=== PATIENT | female | born 1970 | race African-American/Black ===

== ENCOUNTER 2017-05-24 20:28 | Emergency (ER) | payer OTHER ==
--- NOTE | 2017-05-24 21:06 | RAD ---
FOUR VIEWS OF THE RIGHT KNEE: 05/24/17 INDICATION: Fall through porch with right knee pain. COMPARISON: None. FINDINGS: No acute fracture or subluxation is evident. IMPRESSION: No acute fracture or subluxation. POS: BERNABE
--- NOTE | 2017-05-24 21:06 | RAD ---
THREE VIEWS OF THE RIGHT FORELE05/24/17 INDICATION: Fell through porch with right leg pain. FINDINGS: There is prominent soft tissue swelling of the right foreleg. No acute fracture or subluxation is ev ident. IMPRESSION: No acute osseous abnormality. POS: FERMIN
[2017-05-24] MEDS ORDERED: HYDROcodone/Acetaminophen 10/325 mg Tablet ONE (23:15)
== END 2017-05-24 23:20 | disposition home or self-care (01) ==
LOC: ERS 20:28
DX: S80.11XA Contusion of right lower leg, initial encounter (principal); I10 Essential (primary) hypertension; W01.0XXA Fall on same level from slipping, tripping and stumbling without subsequent striking against object, initial encounter

== ENCOUNTER 2018-08-27 17:53 | Emergency (ER) | payer OTHER, SELFPAY | END 2018-08-27 19:30 | disposition home or self-care (01) | LOC: ERS 17:53 | DX: S39.012A Strain of muscle, fascia and tendon of lower back, initial encounter (principal); M54.16 Radiculopathy, lumbar region; E11.9 Type 2 diabetes mellitus without complications; I10 Essential (primary) hypertension; X50.9XXA Other and unspecified overexertion or strenuous movements or postures, initial encounter | CPT/HCPCS: 99283 ==

== ENCOUNTER 2018-10-15 13:26 | Emergency (ER) | payer OTHER, SELFPAY ==
[2018-10-15] MEDS ORDERED: Ondansetron PF 4 MG/2 ML Vial ONE (14:58)
--- NOTE | 2018-10-15 15:21 | CT ---
CT BRAIN WITHOUT CONTRAST: Date: 10/15/18 HISTORY: Intermittent headache. FINDINGS: Comparison made with exam of 04/02/15. No evidence of acute infarct, hemorrhage, midline shift, or abnormal extra-axial fluid collections ar e seen. The ventricular size is normal and the basilar cisterns are patent. The bony calvarium is int act. The visualized paranasal sinuses and mastoid air cells are well aerated. IMPRESSION: Unremarkable unenhanced CT scan of the brain. POS: OFF
[2018-10-15] MEDS ORDERED: Ketorolac Tromethamine 30 MG/ML VIAL ONE (16:16)
[2018-10-15] MEDS ORDERED: Metoclopramide HCl 10 MG/2 ML VIAL ONE (16:16)
== END 2018-10-15 17:40 | disposition home or self-care (01) ==
LOC: ERS 13:26
DX: R51 Headache (principal); E11.9 Type 2 diabetes mellitus without complications; I10 Essential (primary) hypertension; Z79.899 Other long term (current) drug therapy; Z79.84 Long term (current) use of oral hypoglycemic drugs
CPT/HCPCS: 70450; 96361; 96374; 96375; J1885; J2405; J2765

== ENCOUNTER 2018-11-23 23:30 | Emergency (ER) | payer OTHER ==
[2018-11-24] MEDS ORDERED: Dexamethasone 4 mg/ml Vial ONE (01:27)
[2018-11-24] MEDS ORDERED: Ibuprofen 200 MG TAB ONE (01:27)
== END 2018-11-24 01:35 | disposition home or self-care (01) ==
LOC: ERS 23:30
DX: J06.9 Acute upper respiratory infection, unspecified (principal); E11.9 Type 2 diabetes mellitus without complications; I10 Essential (primary) hypertension; Z79.899 Other long term (current) drug therapy
CPT/HCPCS: 87804; 99283; J1100

== ENCOUNTER 2018-12-17 14:41 | Outpatient (CLI) | payer OTHER ==
--- NOTE | 2018-12-17 16:30 | MMO ---
Bilateral MAMMO Bilat Screen [facility]. CLINICAL HISTORY: Patient is 47 years old and is seen for screening. The patient has no family history of breast cancer. The patient has no personal history of cancer. VIEWS: The views performed were: bilateral craniocaudal with tomosynthesis and bilateral mediolateral oblique with tomosynthesis. FILMS COMPARED: The present examination has been compared to prior imaging studies performed at [facility] on 01/20/2009, 04/25/2012, 12/31/2013 and 12/17/2015. MAMMOGRAM FINDINGS: The breasts are heterogeneously dense, which could obscure a lesion on mammography. There are no suspicious masses, suspicious calcifications, or new areas of architectural distortion. IMPRESSION: THERE IS NO MAMMOGRAPHIC EVIDENCE OF MALIGNANCY. A ROUTINE FOLLOW-UP MAMMOGRAM IN 1 YEAR IS RECOMMENDED. THE RESULTS OF THIS EXAM WERE SENT TO THE PATIENT. ACR BI-RADS Category 1 - Negative MAMMOGRAPHY NOTE: 1. A negative mammogram report should not delay a biopsy if a dominant of clinically suspicious mass is present. 2. Approximately 10% to 15% of breast cancers are not detected by mammography. 3. Adenosis and dense breasts may obscure an underlying neoplasm.
== END 2018-12-17 14:42 | disposition home or self-care (01) ==
LOC: BICMAMMO 14:41
PROVIDERS: ATTEND Family Medicine
DX: Z12.31 Encounter for screening mammogram for malignant neoplasm of breast (principal)
CPT/HCPCS: 77063; 77067

== ENCOUNTER 2020-05-14 12:24 | Outpatient (CLI) | payer OTHER ==
--- NOTE | 2020-05-14 13:54 | MMO ---
Bilateral MAMMO Bilat Screen [facility]. CLINICAL HISTORY: Patient is 49 years old and is seen for screening. The patient has no family history of breast cancer. The patient has no personal history of cancer. VIEWS: The views performed were: bilateral craniocaudal with tomosynthesis and bilateral mediolateral oblique with tomosynthesis. FILMS COMPARED: The present examination has been compared to prior imaging studies performed at [facility] on 04/25/2012, 12/31/2013, 12/17/2015 and 12/17/2018. This study has been interpreted with the assistance of computer-aided detection. MAMMOGRAM FINDINGS: The breasts are heterogeneously dense, which could obscure a lesion on mammography. There are no suspicious masses, suspicious calcifications, or new areas of architectural distortion. IMPRESSION: THERE IS NO MAMMOGRAPHIC EVIDENCE OF MALIGNANCY. A ROUTINE FOLLOW-UP MAMMOGRAM IN 1 YEAR IS RECOMMENDED. THE RESULTS OF THIS EXAM WERE SENT TO THE PATIENT. ACR BI-RADS Category 1 - Negative MAMMOGRAPHY NOTE: 1. A negative mammogram report should not delay a biopsy if a dominant of clinically suspicious mass is present. 2. Approximately 10% to 15% of breast cancers are not detected by mammography. 3. Adenosis and dense breasts may obscure an underlying neoplasm. Reported by: GEMINI SOLO MD Electonically Signed: [id number]
== END 2020-05-14 12:25 | disposition home or self-care (01) ==
LOC: BICMAMMO 12:24
PROVIDERS: ATTEND Family Medicine
DX: Z12.31 Encounter for screening mammogram for malignant neoplasm of breast (principal)
CPT/HCPCS: 77063; 77067

== ENCOUNTER 2022-03-02 14:18 | Outpatient (CLI) | payer BC | END 2022-03-02 14:19 | disposition home or self-care (01) | LOC: BICMAMMO 14:18 | PROVIDERS: ATTEND Family Medicine | DX: Z12.31 Encounter for screening mammogram for malignant neoplasm of breast (principal) | CPT/HCPCS: 77063; 77067 ==

== ENCOUNTER 2022-10-03 15:58 | Outpatient (CLI) | payer BC | END 2022-10-03 15:59 | disposition home or self-care (01) | LOC: RAD 15:58 | PROVIDERS: ATTEND Family Medicine | DX: S89.91XA Unspecified injury of right lower leg, initial encounter (principal) ==

== ENCOUNTER → 2023-03-21 | Day surgery (SDC) | payer BC ==
[2023-03-19 14:23] VITALS: BMI 51.6
[~2023-03-21] MED LIST: Lidocaine 1% MPF 2 ML VIAL ONE; PROPOFOL 200 MG/20 ML VIAL ONE
== END ==
LOC: SDC 06:24
PROVIDERS: ATTEND Internal Medicine Gastroenterology
PROC: 0DJD8ZZ Inspection of Lower Intestinal Tract, Via Natural or Artificial Opening Endoscopic (ICD-10-PCS; principal; 2023-03-21)
DX: Z12.11 Encounter for screening for malignant neoplasm of colon (principal); K57.30 Diverticulosis of large intestine without perforation or abscess without bleeding; E78.5 Hyperlipidemia, unspecified; E66.9 Obesity, unspecified; I10 Essential (primary) hypertension; E11.40 Type 2 diabetes mellitus with diabetic neuropathy, unspecified; Z79.84 Long term (current) use of oral hypoglycemic drugs; Z88.8 Allergy status to other drugs, medicaments and biological substances; Z68.43 Body mass index [BMI] 50.0-59.9, adult; Z90.710 Acquired absence of both cervix and uterus; Z98.51 Tubal ligation status; Z79.899 Other long term (current) drug therapy
CPT/HCPCS: J2704

== ENCOUNTER 2023-03-29 13:01 | Outpatient (CLI) | payer BC | END 2023-03-29 13:02 | disposition home or self-care (01) | LOC: BICMAMMO 13:01 | PROVIDERS: ATTEND Internal Medicine | DX: Z12.31 Encounter for screening mammogram for malignant neoplasm of breast (principal) | CPT/HCPCS: 77063; 77067 ==